=== PATIENT | female | born 1965 | race African-American/Black ===

== ENCOUNTER 2016-08-12 11:47 | Emergency (ER) | payer BC ==
[~2016-08-12 11:47] MED LIST: FLEXERIL PO; LISINOPRIL10 MG PO; TYLOX1 CAP 5/50 DOB; VICODIN 5/500 T1 TAB PO
[2016-08-12 12:21] LABS: URINE SOURCE CLEAN CATCH
[2016-08-12 12:30] LABS: URINE APPEARANCE CLEAR; URINE BILIRUBIN NEG (NEG); URINE BLOOD NEG (NEG); URINE COLOR YELLOW; URINE GLUCOSE NEG (NEG); URINE KETONE NEG (NEG); URINE LEUKOCYTE ESTERASE NEG (NEG); URINE NITRATE NEG (NEG); URINE PH 7.5 (5-8); URINE PROTEIN TRACE (NEG); URINE SPECIFIC GRAVITY 1.024 (1.003-1.035)
[2016-08-12 12:38] LABS: CULTURE INDICATED? NO
== END 2016-08-12 12:54 | disposition home or self-care (01) ==
LOC: CED 11:47 → CFTX 11:47
PROVIDERS: Physician Assistant Medical
DX: S39.012A Strain of muscle, fascia and tendon of lower back, initial encounter (principal); I10 Essential (primary) hypertension; Z79.899 Other long term (current) drug therapy; X50.0XXA Overexertion from strenuous movement or load, initial encounter
CPT/HCPCS: 81003; 96372; 99283; J1885; J2360

== ENCOUNTER → 2016-11-13 | Outpatient (CLI) | payer BC ==
--- NOTE | ~2016-11-13 | MY29 ---
[facility] A Service of [facility] & [facility] RADIOLOGY TEXT RESULTS PATIENT: PURNIMA CONRAD LOCATION: [facility] : 69 UNIT #: [id number] AGE: [address]: Parish Marshall MD SEX: F ORDER DR: [id number] [facility] [address] [place], [place] [address] [id number] O MR#: [id number] Acc #: [id number] NAME: PURNIMA CONRAD : 1965 SEX: F STUDY DATE/TIME: 11/13/2016 7:43 UNIT: [facility] ROOM: STUDY DESCRIPTION: [facility] SCREENING W/ CAD BILAT Attending Physician: Parish Marshall M.D. Referring Physician: Parish Marshall M.D. Ordering Physician: Parish Marshall M.D. Primary Care Physician: Parish Marshall M.D. MEDICAL IMAGING REPORT This report is preliminary unless electronic signature is present EXAM Digital screening mammogram, 11/13/2016, [facility]. HISTORY 51-year-old woman. No risk elevation. Annual screen. COMPARISON 07/16/2011, 12/09/2012. FINDINGS Digital imaging of each breast was completed utilizing screening protocol. Review includes FDA-approved CAD device. Breast parenchyma is moderately dense in each breast with a small nodular parenchymal fibroglandular pattern. Subareolar duct prominence is stable in each breast. I see no breast mass. There are no interval occurring microcalcifications and no suspicious architectural deformity. IMPRESSION Negative mammogram. Annual screening recommended. Patients over the age of 40 are entered into a reminder system with target due date for the next mammogram. A result letter will also be sent to the patient. BIRADS: 1 Negative. Dictated by... Chava Hinojosa M.D. THIS IS AN ELECTRONICALLY VERIFIED REPORT Chava Hinojosa M.D. at 11/13/2016 12:34 PM NIELS/arias [facility]. [facility] A Service of [facility] & [facility] RADIOLOGY TEXT RESULTS PATIENT: PURNIMA CONRAD LOCATION: [facility] #: [id number] : [birth year] UNIT #: [id number] AGE: [address]: Parish Marshall MD SEX: F ORDER DR: TD: 11/13/2016 11:53 JOB #: [id number] MEDICAL IMAGING REPORT Page 1 of 1 COPY
== END | disposition home or self-care (01) ==
LOC: CWCC 11-10 12:45
DX: Z12.31 Encounter for screening mammogram for malignant neoplasm of breast (principal)
CPT/HCPCS: G0202